=== PATIENT | male | born 1960 | race African-American/Black ===

== ENCOUNTER 2016-11-02 15:34 | Inpatient (IN) | payer OTHER ==
[~2016-11-02] VITALS: Ht 175.3 cm; Wt 84.2 kg
[~2016-11-02 15:34] MED LIST: ASP81EC PO; INSLANTI SC; MET50T PO; MUPI2OIN10 TOP; TICA90TA PO
[2016-11-02 16:57] LABS: Basophils # (auto) 0.1 uL; Basophils % (auto) 0.9 % (0.0-2.0); Eosinophils # (auto) 0.1 uL; Eosinophils % (auto) 0.9 % (0.0-7.0); Hematocrit 37.5 % (41.0-53.0); Hemoglobin 12.2 g/dL (13.5-17.5); Lymphocytes # (auto) 0.9 uL; Lymphocytes % (auto) 14.7 % (10.0-50.0); Mean Corpuscular Hemoglobin 29.6 pg (28.0-32.0); Mean Corpuscular Hgb Conc. 32.5 g/dL (32.0-36.0); Mean Corpuscular Volume 91.3 fL (80.0-100.0); Mean Platelet Volume 11.7 fL (7.4-10.4); Monocytes # (auto) 0.4 uL; Monocytes % (auto) 6.4 % (0.0-12.0); Neutrophils # (auto) 4.7 uL; Neutrophils % (auto) 77.1 % (37.0-80.0); Platelet Count (auto) 163 10^3/uL (140-450); Red Cell Distribution Width 15.3 % (11.6-16.0); White Blood Cell 6.1 10^3/uL (4.4-10.8)
[2016-11-02 17:18] LABS: Albumin 2.6 g/dL (3.4-5.0); BUN/Creatinine Ratio 19.5; Calcium 8.2 mg/dL (8.5-10.1)
[2016-11-02 17:23] LABS: Bilirubin, Total 1.8 mg/dL (0.2-1.0); Total Protein 6.5 g/dL (6.4-8.2)
[2016-11-02] MEDS ORDERED: InsuLIN REG 1unit/0.01ml Soln (100units/ml) IV ONE (17:45)
[2016-11-02] MEDS ORDERED: SODIUM CHLORIDE 0.9% 1,000 ML IV ONE (17:45)
[2016-11-02] MEDS ORDERED: VANCOMYCIN 1GM/250ML D5W 250 ML IV ONE (17:45)
[2016-11-02] MEDS ORDERED: MORPHINE SULF INJ 2 MG/ML SYRINGE 1ML IV ONE (17:45)
[2016-11-02] MEDS ORDERED: ONDANSETRON HCL 4 MG/2 ML VIAL IV ONE (17:45)
[2016-11-02 18:39] LABS: Temperature: 23.5 C (20.0-25.0)
[2016-11-02] MEDS ORDERED: TEMAZEPAM 15 MG CAP PO PRN (21:30)
[2016-11-02] MEDS ORDERED: MORPHINE SULF INJ 2 MG/ML SYRINGE 1ML IV PRN (21:30)
[2016-11-02] MEDS ORDERED: DEXTROSE (50%) 50ML SYRG IV PRN (21:30)
[2016-11-02] MEDS ORDERED: ONDANSETRON HCL 4 MG/2 ML VIAL IV PRN (21:30)
[2016-11-02] MEDS ORDERED: ACETAMINOPHEN 325 MG TAB PO PRN (21:30)
[2016-11-02] MEDS ORDERED: NITROGLYCERIN 0.4 MG SL TAB SL PRN (21:30)
[2016-11-02] MEDS: FAMOTIDINE 20 MG TAB PO SCH (22:13)
[2016-11-02] MEDS: CARVEDILOL 3.125 MG TAB PO SCH (22:13)
[2016-11-02 22:40] VITALS: BP 117/72
[2016-11-03] MEDS: ACCU-CHEK COMFORT CURVE STRIP VI SCH ×4 (00:22→17:50)
[2016-11-03] MEDS: InsuLIN REG 1unit/0.01ml Soln (100units/ml) SC SCH ×4 (00:22→18:08)
[2016-11-03] MEDS ORDERED: LOSA50TA6 PO (01:51)
[2016-11-03] MEDS ORDERED: INSLISPI SC (01:51)
[2016-11-03] MEDS ORDERED: INSLANTI SC (01:51)
[2016-11-03] MEDS ORDERED: CARV25TA PO (01:51)
[2016-11-03] MEDS ORDERED: TORS20TA19 PO (01:51)
[2016-11-03 05:18] VITALS: BP 128/83
[2016-11-03] MEDS ORDERED: PNEUMOCOCCAL VACC POLYS 25 MCG/0.5 ML VIAL IM ONE (06:00)
[2016-11-03 06:27] LABS: Basophils # (auto) 0.1 uL; Basophils % (auto) 0.8 % (0.0-2.0); Eosinophils # (auto) 0.1 uL; Eosinophils % (auto) 1.7 % (0.0-7.0); Hemoglobin 12.2 g/dL (13.5-17.5); Lymphocytes # (auto) 1.6 uL; Lymphocytes % (auto) 21.6 % (10.0-50.0); Mean Corpuscular Hemoglobin 29.5 pg (28.0-32.0); Mean Corpuscular Hgb Conc. 32.1 g/dL (32.0-36.0); Mean Corpuscular Volume 92.1 fL (80.0-100.0); Monocytes # (auto) 0.6 uL; Monocytes % (auto) 8.7 % (0.0-12.0); Neutrophils % (auto) 67.2 % (37.0-80.0); Platelet Count (auto) 177 10^3/uL (140-450); Red Cell Distribution Width 15.1 % (11.6-16.0); White Blood Cell 7.4 10^3/uL (4.4-10.8)
[2016-11-03 06:42] LABS: Albumin 2.4 g/dL (3.4-5.0); BUN/Creatinine Ratio 20.5; Calcium 8.1 mg/dL (8.5-10.1); Potassium 3.4 mmol/L (3.5-5.1)
[2016-11-03 06:47] LABS: Bilirubin, Total 1.4 mg/dL (0.2-1.0); Total Protein 6.3 g/dL (6.4-8.2)
[2016-11-03 08:00] VITALS: BP 110/74
[2016-11-03] MEDS: cefTRIAXone 1GM/50ML D5W 50 ML IV SCH (08:05)
[2016-11-03 09:00] VITALS: BP 110/74
[2016-11-03] MEDS: FAMOTIDINE 20 MG TAB PO SCH ×2 (09:27→22:26)
[2016-11-03] MEDS: ENOXAPARIN SOD 40 MG/0.4 ML SYRINGE SC SCH (09:27)
[2016-11-03] MEDS: ASPirin 81 mg TAB PO SCH (09:28)
[2016-11-03] MEDS: CARVEDILOL 3.125 MG TAB PO SCH ×2 (09:28→22:27)
[2016-11-03] MEDS: LOSARTAN POTASSIUM 25 MG TAB PO SCH (09:29)
[2016-11-03 13:00] VITALS: BP 130/86
[2016-11-03] MEDS: HYDROcodone-ACET 5/325MG TAB PO PRN ×2 (13:55→22:29)
[2016-11-03] MEDS ORDERED: TAMSULOSIN HYDROCHLORIDE 0.4 MG CAP PO ONE (17:00)
[2016-11-03 17:46] VITALS: BP_SYST 125; BP_SYST 130; BP_DIAS 85; BP_DIAS 86
[2016-11-03] MEDS: FUROSEMIDE 40 MG/4 ML VIAL IV SCH (17:50)
[2016-11-03] MEDS: INSULIN DETEMIR(LEVEMIR) 1unit/0.01ml Soln (100units/ml) SC SCH (22:29)
[2016-11-03 22:30] VITALS: BP 135/84
[2016-11-04] MEDS: InsuLIN REG 1unit/0.01ml Soln (100units/ml) SC SCH ×4 (01:09→18:00)
[2016-11-04] MEDS: ACCU-CHEK COMFORT CURVE STRIP VI SCH ×4 (01:09→18:09)
[2016-11-04 05:55] VITALS: BP 142/73
[2016-11-04] MEDS: FUROSEMIDE 40 MG/4 ML VIAL IV SCH ×2 (06:09→18:08)
[2016-11-04] MEDS: INSULIN DETEMIR(LEVEMIR) 1unit/0.01ml Soln (100units/ml) SC SCH ×2 (06:33→22:00)
[2016-11-04 07:03] LABS: Basophils # (auto) 0 uL; Basophils % (auto) 0.4 % (0.0-2.0); Eosinophils # (auto) 0.1 uL; Hematocrit 36.5 % (41.0-53.0); Hemoglobin 11.7 g/dL (13.5-17.5); Lymphocytes # (auto) 0.9 uL; Lymphocytes % (auto) 10.7 % (10.0-50.0); Mean Corpuscular Hemoglobin 29.5 pg (28.0-32.0); Mean Corpuscular Hgb Conc. 32.1 g/dL (32.0-36.0); Mean Platelet Volume 12.2 fL (7.4-10.4); Monocytes # (auto) 0.7 uL; Monocytes % (auto) 8.7 % (0.0-12.0); Neutrophils # (auto) 6.5 uL; Neutrophils % (auto) 79.2 % (37.0-80.0); Platelet Count (auto) 159 10^3/uL (140-450); Red Cell Distribution Width 15.1 % (11.6-16.0); White Blood Cell 8.2 10^3/uL (4.4-10.8)
[2016-11-04 07:18] LABS: BUN/Creatinine Ratio 22.1; Calcium 8.1 mg/dL (8.5-10.1); Potassium 4.1 mmol/L (3.5-5.1)
[2016-11-04 08:00] VITALS: BP 142/75
[2016-11-04 09:00] VITALS: BP 131/88
[2016-11-04] MEDS: ENOXAPARIN SOD 40 MG/0.4 ML SYRINGE SC SCH (09:34)
[2016-11-04] MEDS: CARVEDILOL 3.125 MG TAB PO SCH ×2 (09:36→21:26)
[2016-11-04] MEDS: ASPirin 81 mg TAB PO SCH (09:36)
[2016-11-04] MEDS: FAMOTIDINE 20 MG TAB PO SCH (09:36)
[2016-11-04] MEDS: LOSARTAN POTASSIUM 25 MG TAB PO SCH (09:37)
[2016-11-04] MEDS: cefTRIAXone 1GM/50ML D5W 50 ML IV SCH (09:37)
[2016-11-04] MEDS: HYDROcodone-ACET 5/325MG TAB PO PRN (12:50)
[2016-11-04 13:00] VITALS: BP 135/94
[2016-11-04] MEDS ORDERED: MULTIPLE VITAMINS W/ MINERALS TAB PO ONE (17:45)
[2016-11-04 20:00] VITALS: BP 125/77
[2016-11-04] MEDS: ASCORBIC ACID 500 MG TAB PO SCH (21:19)
[2016-11-04 21:35] VITALS: BP 125/77
[2016-11-05] VITALS (9 sets, daily range): BP systolic 125–162; BP diastolic 72–102
[2016-11-05] MEDS: ACCU-CHEK COMFORT CURVE STRIP VI SCH ×5 (00:08→22:00)
[2016-11-05] MEDS: InsuLIN REG 1unit/0.01ml Soln (100units/ml) SC SCH ×5 (00:08→22:00)
[2016-11-05] MEDS: FUROSEMIDE 40 MG/4 ML VIAL IV SCH ×2 (06:06→18:17)
[2016-11-05] MEDS: INSULIN DETEMIR(LEVEMIR) 1unit/0.01ml Soln (100units/ml) SC SCH ×2 (06:54→22:00)
[2016-11-05 06:59] LABS: Basophils # (auto) 0.1 uL; Basophils % (auto) 0.6 % (0.0-2.0); Eosinophils # (auto) 0.2 uL; Eosinophils % (auto) 2.1 % (0.0-7.0); Hematocrit 40.6 % (41.0-53.0); Hemoglobin 12.9 g/dL (13.5-17.5); Lymphocytes # (auto) 1.7 uL; Lymphocytes % (auto) 19.8 % (10.0-50.0); Mean Corpuscular Hemoglobin 29.4 pg (28.0-32.0); Mean Corpuscular Hgb Conc. 31.7 g/dL (32.0-36.0); Mean Corpuscular Volume 92.8 fL (80.0-100.0); Mean Platelet Volume 12.1 fL (7.4-10.4); Monocytes # (auto) 0.9 uL; Monocytes % (auto) 10.8 % (0.0-12.0); Neutrophils # (auto) 5.7 uL; Neutrophils % (auto) 66.7 % (37.0-80.0); Platelet Count (auto) 173 10^3/uL (140-450); Red Cell Distribution Width 14.9 % (11.6-16.0); SUSPECT VIEW TRANSMISSION; White Blood Cell 8.6 10^3/uL (4.4-10.8)
[2016-11-05 07:32] LABS: Potassium 3.7 mmol/L (3.5-5.1)
[2016-11-05] MEDS ORDERED: DEXTROSE (50%) 50ML SYRG IV PRN (09:45)
[2016-11-05] MEDS: cefTRIAXone 1GM/50ML D5W 50 ML IV SCH (09:56)
[2016-11-05] MEDS: ASPirin 81 mg TAB PO SCH (10:12)
[2016-11-05] MEDS: ASCORBIC ACID 500 MG TAB PO SCH ×2 (10:13→22:39)
[2016-11-05] MEDS: FAMOTIDINE 20 MG TAB PO SCH (10:14)
[2016-11-05] MEDS: CARVEDILOL 3.125 MG TAB PO SCH ×2 (10:17→22:39)
[2016-11-05] MEDS: LOSARTAN POTASSIUM 25 MG TAB PO SCH (10:19)
[2016-11-05] MEDS: ENOXAPARIN SOD 40 MG/0.4 ML SYRINGE SC SCH (10:20)
[2016-11-05] MEDS: MULTIPLE VITAMINS W/ MINERALS TAB PO SCH (10:20)
[2016-11-05 11:29] LABS: BUN/Creatinine Ratio 23.7; Calcium 8.2 mg/dL (8.5-10.1)
[2016-11-05] MEDS: HYDROcodone-ACET 5/325MG TAB PO PRN ×2 (12:16→16:08)
[2016-11-05] MEDS ORDERED: SODIUM CHLORIDE 0.9% 1,000 ML IV SCH (19:00)
[2016-11-05 19:55] LABS: Albumin 2.2 g/dL (3.4-5.0); Calcium 7.6 mg/dL (8.5-10.1)
[2016-11-05 19:58] LABS: Bilirubin, Total 1.6 mg/dL (0.2-1.0); Total Protein 6.2 g/dL (6.4-8.2)
[2016-11-06] MEDS: HYDROcodone-ACET 5/325MG TAB PO PRN ×3 (00:42→19:51)
[2016-11-06 05:38] VITALS: BP 131/81
[2016-11-06 06:32] LABS: Basophils # (auto) 0 uL; Basophils % (auto) 0.4 % (0.0-2.0); Eosinophils # (auto) 0.2 uL; Eosinophils % (auto) 2.4 % (0.0-7.0); Hematocrit 35.5 % (41.0-53.0); Hemoglobin 11.4 g/dL (13.5-17.5); Lymphocytes % (auto) 14.7 % (10.0-50.0); Mean Corpuscular Hemoglobin 29.5 pg (28.0-32.0); Mean Corpuscular Hgb Conc. 32.1 g/dL (32.0-36.0); Mean Platelet Volume 11.6 fL (7.4-10.4); Monocytes # (auto) 0.8 uL; Monocytes % (auto) 11.6 % (0.0-12.0); Neutrophils # (auto) 4.7 uL; Neutrophils % (auto) 70.9 % (37.0-80.0); Platelet Count (auto) 157 10^3/uL (140-450); Red Cell Distribution Width 14.5 % (11.6-16.0); White Blood Cell 6.7 10^3/uL (4.4-10.8)
[2016-11-06 06:51] LABS: INR 1.06 (0.9-1.15); Partial Thromboplastin Time 26.4 sec (22.64-33.71); Prothrombin Time 11.4 sec (9.37-12.3)
[2016-11-06] MEDS: FUROSEMIDE 40 MG/4 ML VIAL IV SCH ×2 (06:57→18:38)
[2016-11-06] MEDS: InsuLIN REG 1unit/0.01ml Soln (100units/ml) SC SCH ×4 (06:58→22:14)
[2016-11-06] MEDS: INSULIN DETEMIR(LEVEMIR) 1unit/0.01ml Soln (100units/ml) SC SCH ×2 (06:58→22:14)
[2016-11-06] MEDS: ACCU-CHEK COMFORT CURVE STRIP VI SCH ×4 (06:58→22:03)
[2016-11-06 09:00] VITALS: BP 140/90
[2016-11-06] MEDS: cefTRIAXone 1GM/50ML D5W 50 ML IV SCH (09:20)
[2016-11-06] MEDS: MULTIPLE VITAMINS W/ MINERALS TAB PO SCH (09:23)
[2016-11-06] MEDS: FAMOTIDINE 20 MG TAB PO SCH (09:23)
[2016-11-06] MEDS: ENOXAPARIN SOD 40 MG/0.4 ML SYRINGE SC SCH (09:24)
[2016-11-06] MEDS: ASCORBIC ACID 500 MG TAB PO SCH ×2 (09:24→22:03)
[2016-11-06] MEDS: ASPirin 81 mg TAB PO SCH (09:53)
[2016-11-06] MEDS: CARVEDILOL 3.125 MG TAB PO SCH ×2 (09:54→22:03)
[2016-11-06] MEDS: LOSARTAN POTASSIUM 25 MG TAB PO SCH (09:54)
[2016-11-06] MEDS ORDERED: LIDOCAINE 2%HCL (LOCAL ANESTH.) INJ 20ML MDV ONE ×2 (12:21→12:54)
[2016-11-06] MEDS ORDERED: IOHEXOL 350 MG/ML 100ML IJ ONE (12:21)
[2016-11-06 13:00] VITALS: BP 131/89
[2016-11-06] MEDS ORDERED: DOXYCYCLINE HYC 100MG/250ML 250 ML IV SCH (13:00)
[2016-11-06] MEDS ORDERED: VANCOMYCIN 1GM/250ML D5W 250 ML IV ONE (13:10)
[2016-11-06] MEDS ORDERED: VANCOMYCIN HCL 1000 MG VL ONE ×3 (13:10→14:05)
[2016-11-06] MEDS ORDERED: MIDAZOLAM HCL 1MG/1ML-2 ML VIAL ONE (13:28)
[2016-11-06] MEDS ORDERED: fentaNYL CITRATE 100 MCG/2 ML VL ONE (13:28)
[2016-11-06] MEDS ORDERED: BACITRACIN INJ 50000 UNIT VIAL ONE (14:02)
[2016-11-06 17:00] VITALS: BP 147/100
[2016-11-06 22:07] VITALS: BP 140/90
[2016-11-07] MEDS: HYDROcodone-ACET 5/325MG TAB PO PRN ×3 (01:25→13:13)
[2016-11-07 05:14] VITALS: BP 129/86
[2016-11-07] MEDS: DOXYCYCLINE HYC 100MG/250ML 250 ML IV SCH ×2 (05:47→17:00)
[2016-11-07] MEDS: FUROSEMIDE 40 MG/4 ML VIAL IV SCH ×2 (05:48→17:10)
[2016-11-07] MEDS: ACCU-CHEK COMFORT CURVE STRIP VI SCH ×3 (06:30→17:00)
[2016-11-07] MEDS: INSULIN DETEMIR(LEVEMIR) 1unit/0.01ml Soln (100units/ml) SC SCH (06:31)
[2016-11-07] MEDS: InsuLIN REG 1unit/0.01ml Soln (100units/ml) SC SCH ×3 (06:32→17:00)
[2016-11-07 07:06] LABS: BUN/Creatinine Ratio 27.9; Calcium 7.6 mg/dL (8.5-10.1); Potassium 4.1 mmol/L (3.5-5.1)
[2016-11-07] MEDS: cefTRIAXone 1GM/50ML D5W 50 ML IV SCH (08:59)
[2016-11-07 09:00] VITALS: BP 129/84
[2016-11-07] MEDS: ASCORBIC ACID 500 MG TAB PO SCH (09:04)
[2016-11-07] MEDS: ENOXAPARIN SOD 40 MG/0.4 ML SYRINGE SC SCH (09:04)
[2016-11-07] MEDS: LOSARTAN POTASSIUM 25 MG TAB PO SCH (09:05)
[2016-11-07] MEDS: FAMOTIDINE 20 MG TAB PO SCH (09:05)
[2016-11-07] MEDS: MULTIPLE VITAMINS W/ MINERALS TAB PO SCH (09:05)
[2016-11-07] MEDS: CARVEDILOL 3.125 MG TAB PO SCH (09:05)
[2016-11-07] MEDS ORDERED: ASPirin 81 mg TAB PO SCH (10:00)
[2016-11-07] MEDS ORDERED: VANCOMYCIN 1GM/250ML D5W 250 ML IV ONE ×2 (10:45→11:45)
[2016-11-07 10:50] LABS: Basophils # (auto) 0 uL; Basophils % (auto) 0.5 % (0.0-2.0); Eosinophils # (auto) 0.1 uL; Eosinophils % (auto) 2.2 % (0.0-7.0); Hematocrit 38.9 % (41.0-53.0); Hemoglobin 12.3 g/dL (13.5-17.5); Lymphocytes # (auto) 0.9 uL; Lymphocytes % (auto) 14.5 % (10.0-50.0); Mean Corpuscular Hemoglobin 29.5 pg (28.0-32.0); Mean Corpuscular Hgb Conc. 31.6 g/dL (32.0-36.0); Mean Corpuscular Volume 93.2 fL (80.0-100.0); Mean Platelet Volume 12.1 fL (7.4-10.4); Monocytes # (auto) 0.8 uL; Monocytes % (auto) 12.8 % (0.0-12.0); Neutrophils # (auto) 4.5 uL; Platelet Count (auto) 181 10^3/uL (140-450); Red Cell Distribution Width 15.5 % (11.6-16.0); SUSPECT VIEW TRANSMISSION; White Blood Cell 6.5 10^3/uL (4.4-10.8)
[2016-11-07 13:00] VITALS: BP 141/96
== END 2016-11-07 18:54 | disposition home or self-care (01) | DRG 226 ==
LOC: EDBD 15:34 → ER 15:34 → EAST 15:35 → TELE-EAST 22:29
PROVIDERS: ADMIT Nurse Practitioner; ATTEND Family Medicine
PROC: B5171ZZ Fluoroscopy of Left Subclavian Vein using Low Osmolar Contrast (ICD-10-PCS; principal; 2016-11-06)
PROC: 0JH608Z Insertion of Defibrillator Generator into Chest Subcutaneous Tissue and Fascia, Open Approach (ICD-10-PCS; 2016-11-06)
PROC: 02HK3KZ Insertion of Defibrillator Lead into Right Ventricle, Percutaneous Approach (ICD-10-PCS; 2016-11-06)
PROC: 02H63KZ Insertion of Defibrillator Lead into Right Atrium, Percutaneous Approach (ICD-10-PCS; 2016-11-06)
PROC: 4B02XSZ Measurement of Cardiac Pacemaker, External Approach (ICD-10-PCS; 2016-11-06)
DX: T82.111A Breakdown (mechanical) of cardiac pulse generator (battery), initial encounter (principal); I50.43 Acute on chronic combined systolic (congestive) and diastolic (congestive) heart failure; E43 Unspecified severe protein-calorie malnutrition; I13.0 Hypertensive heart and chronic kidney disease with heart failure and stage 1 through stage 4 chronic kidney disease, or unspecified chronic kidney disease; L97.319 Non-pressure chronic ulcer of right ankle with unspecified severity; N17.9 Acute kidney failure, unspecified; N13.8 Other obstructive and reflux uropathy; M86.9 Osteomyelitis, unspecified; E11.22 Type 2 diabetes mellitus with diabetic chronic kidney disease; E11.65 Type 2 diabetes mellitus with hyperglycemia; E78.5 Hyperlipidemia, unspecified; I25.10 Atherosclerotic heart disease of native coronary artery without angina pectoris; N18.3 Chronic kidney disease, stage 3 (moderate); Y71.2 Prosthetic and other implants, materials and accessory cardiovascular devices associated with adverse incidents; I25.5 Ischemic cardiomyopathy; N50.89 Other specified disorders of the male genital organs; E87.6 Hypokalemia; N40.1 Benign prostatic hyperplasia with lower urinary tract symptoms; E11.69 Type 2 diabetes mellitus with other specified complication; E11.621 Type 2 diabetes mellitus with foot ulcer; N48.89 Other specified disorders of penis; L97.519 Non-pressure chronic ulcer of other part of right foot with unspecified severity; B96.20 Unspecified Escherichia coli [E. coli] as the cause of diseases classified elsewhere; Z82.3 Family history of stroke; Z82.49 Family history of ischemic heart disease and other diseases of the circulatory system; Z23 Encounter for immunization; Z83.3 Family history of diabetes mellitus; Z86.14 Personal history of Methicillin resistant Staphylococcus aureus infection; Z95.5 Presence of coronary angioplasty implant and graft; Z68.27 Body mass index [BMI] 27.0-27.9, adult; Z88.8 Allergy status to other drugs, medicaments and biological substances
CPT/HCPCS: 33249; 36415; 71010; 71020; 73590; 78315; 80048; 80053; 82962; 83036; 83735; 83880; 84484; 85025; 85379; 85610; 85730; 87040; 87077; 87081; 87186; 87205; 93005; 93306; 93923; 96365; 96375; 99291; J0696; J1815; J2250; J2405; J3490